=== PATIENT | female | born 1945 | race Caucasian/White ===

== ENCOUNTER → 2016-11-28 | Day surgery (SDC) | payer MEDICARE ==
--- NOTE | 2016-11-20 16:25 | MH ---
cc: TRACI GONZALEZ DATE OF ADMISSION: 11/28/2016 DATE OF 1945 ATTENDING PHYSICIAN Traci Gonzalez MD DIAGNOSIS Left breast cancer. 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 She was diagnosed with klo-cqtet-aldw lung cancer in September of 2012, treated with surgical resection of the right middle lobe followed by adjuvant chemotherapy with cisplatin. This was completed in January of 2013 and she is followed by Dr. Britt. She was in remission until April of 2016 when she developed brain metastasis, treated with stereotactic radiosurgery by Dr. Garcia and Dr. Palomares. A restaging MRI demonstrated reduction in the size of brain enhancement from 2.8 to 2.4 cm in July. A screening mammogram on September 19, 2016 demonstrated a density in the left breast and this was confirmed with diagnostic imaging and ultrasound on September 30 at [facility]. Ultrasound-guided core biopsy was performed on October 08 and this demonstrated invasive ductal carcinoma which was well-differentiated. She had a mass in the 4 o'clock location 6 cm from the nipple. She has opted for breast conservation and after discussion with Dr. Britt, he feels that she is in remission related to her lung cancer and brain involvement. She had a benign right breast image guided biopsy in 2008. PAST MEDICAL HISTORY Medical problems include: 1. Kjq-zvmqs-ylqd lung cancer with stage IV disease, currently in remission. 2. She has hypothyroidism. 3. Chronic obstructive pulmonary disease. PAST SURGERIES 1. Included craniotomy in 2015. 2. Thoracotomy and lung resection 2011. 3. Repair of right rotator cuff injury 2007. CURRENT MEDICATIONS 1. Keppra 500 mg b.i.d. 2. Naproxen 500 mg b.i.d. 3. Pravastatin 20 mg daily. 4. Xanax p.r.n. ALLERGIES SHE HAS AN ADVERSE DRUG REACTION TO OXYCODONE. REPRODUCTIVE HISTORY G0, P0. Menarche age 16, menopause age 44. She took hormone replacement for approximately 10 years. FAMILY HISTORY Significant for a sister who had DCIS at age 54. REVIEW OF SYSTEMS 12-point review of systems was significant for constipation and heartburn as well as mild expressive aphasia. PHYSICAL EXAMINATION VITAL SIGNS: She is 5 feet 3 inches and weighs 126 pounds with a BMI of 22.7. Blood pressure was 124/75, temperature 97, heart rate 79, respirations 18. HEENT: Pupils were equal, round, reactive to light with a normal ocular range of motion. She had a partial removable lower bridge. NECK: The neck was supple with no adenopathy or thyromegaly. CHEST: Exam revealed a right thoracotomy scar and it was clear to auscultation bilaterally. CARDIAC: Exam revealed a normal S1 and S2 with no murmurs, rubs or gallops. BREASTS: Exam revealed fibrocystic changes and asymmetry with a left breast being larger than the right. There were no palpable breast masses and there was no axillary adenopathy. ABDOMEN: The abdomen was soft and nontender with no masses. The remainder of her exam was unremarkable. IMPRESSION Ms. Tolliver has clinical stage I ductal carcinoma and has opted for breast conservation. She will undergo needle-localized lumpectomy as well as sentinel lymph node biopsy. She understands the risks and benefits of the procedure and has agreed to proceed. MD SHAMIR Romero/SAFIA /3:19 PM /3:51 PM
[~2016-11-28] MED LIST: ALBU.5I NEB; ALBU8I INH; ALPR0.25 PO; AMBI12.5 PO; ANAS1TAB PO; ASCO500C PO; ASPI81TA82 PO; BIOTCAP OR; BUPIVACAINE HCL PF 0.5% 10 ML VIAL ONE; CRAN1000 PO; DEXA4TAB PO; FISH1000 PO; ISOSULFAN BLUE 50 MG/5 ML VIAL SQ ONE; KEPP10002 PO; KETOROLAC TROMETHAMINE 30 MG/ML (IVP) VIAL IV PUSH ONE; LACTATED RINGER'S 1000 ML INJ 1,000 ML ONE; LEVE500 PO; LEVO.05 PO; LEVO50TA4 PO; MIDAZOLAM HCL 2 MG/2 ML VIAL ONE; MISC1TAB9 PO; MULT-65 PO; NS 100 ML (PAB BAG) 100 ML IV ONE; ONDANSETRON HCL 4 MG/2 ML VIAL IV PUSH ONE; PANT40IN3 PO; PRAV10 OR; PRAV20TA2 PO; PROPOFOL 200 MG/20 ML AMP IV ONE; SERT-132 PO; SODIUM CHLORIDE 0.9% INJ 10 ML ONE; STOO100T PO; TRAM50TA PO; ULTR50TA5 PO; VITA20002 PO; VITA200T5 PO; ZOLP10TA3 OR; ZOLP10TA3 PO; [UNRECOGNIZED DRUG - CODE] PO; [UNRECOGNIZED DRUG - CODE] SWISH-SPIT; ceFAZolin INJ 1,000 MG VIAL ONE
--- NOTE | 2016-11-28 14:28 | TN ---
cc: TRACI GONZALEZ DATE OF SURGERY: 11/28/2016 PREOPERATIVE DIAGNOSIS Clinical stage I invasive ductal carcinoma of the left breast. POSTOPERATIVE DIAGNOSIS Clinical stage I invasive ductal carcinoma of the left breast. PROCEDURE PERFORMED Left breast needle-localized lumpectomy and left axillary sentinel lymph node biopsy. SURGEON Traci Gonzalez ANESTHESIA General via LMA device. INDICATION The patient is a 71-year-old female treated for right lung cancer with lobectomy followed by chemotherapy and a subsequent brain metastasis in March 2016 requiring stereotactic surgery. She is currently doing well from a lung cancer standpoint, but mammogram in August demonstrated a new density which is a biopsy-proven clinical stage I breast cancer. She now presents for definitive surgical therapy. FINDINGS At the time of surgery specimen mammogram did demonstrate an intact wire and the biopsy clip and density were within the specimen but close to the edge. Four sentinel lymph nodes were removed. #1 had a count of 375 and was not blue. #2 had a count of 141 and was not blue, and #3 had a count of 135 and was not blue. #4 had a count of 67 and was not blue. Touch prep was not performed. PROCEDURE After informed consent was obtained and site verification was performed, the patient was brought to the radiology suite where she underwent needle localization of her left breast biopsy site as well as peritumoral radionuclide injection for a sentinel node procedure. She was then brought to the major operating room where she underwent general anesthesia via an LMA device, and the left breast and arm were prepped and draped in sterile fashion. 2 cc of half-strength Lymphazurin was injected in the subareolar left breast and a five-minute massage was performed. She was given a single dose of IV Ancef and sequential compression hose were placed. An incision was anesthetized at the inferior aspect of the left axillary hairline. Both sharp and electrocautery dissection were performed until the level I axilla was entered. Four mid level I sentinel lymph nodes were identified and circumferentially dissected free from surrounding structures using the Harmonic scalpel. Good hemostasis was noted and the four sentinel nodes were sent for permanent pathologic evaluation. Touch prep was not performed and the wound was closed with interrupted 3-0 Vicryl and 4-0 Monocryl subcuticular suture. Attention was then turned to the left breast where a wire was identified in the lower outer breast. A periareolar skin incision was anesthetized and incised sharply and both sharp and electrocautery dissection were performed until the wire entry point through the skin at 4 o'clock, 3 cm from the nipple was identified and secured with a hemostat. The wire was cut off at the skin with pin cutters and a 2-0 silk transfixion suture was placed at the wire entry point into the breast tissue. Both sharp and electrocautery dissection was performed circumferentially around the wire and the specimen was oriented with two sutures laterally, one long suture anteriorly, and one short suture superiorly. The specimen was sent for mammography as well as permanent pathologic evaluation but inspection of the specimen did demonstrate that the superior and anterior margins appeared close and each of these was sharply re-excised with a stitch on the new margin and they were sent as separate permanent specimens. Hemostasis was easily obtained with electrocautery and the wound was closed using interrupted 3-0 Vicryl subcutaneous sutures and a 4-0 Monocryl subcuticular suture. Steri-Strips were applied to both wounds. The patient tolerated the procedure well with an estimated blood loss of 50 cc. She was extubated in the operating room and brought to the recovery room in good condition. All sponge and needle counts were correct at the conclusion of the case. MD SHAMIR Romero/RUDY /2:03 PM /2:17 PM
== END | disposition home or self-care (01) ==
LOC: ESDC 08:52
PROVIDERS: ATTEND Surgery
DX: C50.912 Malignant neoplasm of unspecified site of left female breast (principal)
CPT/HCPCS: 00400; 01610; 19125; 38525; 38792; 88307; J0690; J1885; J2250; J2405; J3010; J7120; Q9968

== ENCOUNTER 2017-04-27 11:42 | Inpatient (IN) | payer MEDICARE ==
[~2017-04-27] VITALS: Ht 162.6 cm; Wt 61.0 kg
[~2017-04-27 11:42] MED LIST changes: -AMBI12.5 PO; -TRAM50TA PO; -ULTR50TA5 PO; -[UNRECOGNIZED DRUG - CODE] SWISH-SPIT
--- NOTE | 2017-04-28 17:21 | MH ---
cc: SUMAYA BRITT M.D., ROHIT K. M.D. KROCHAK, RONALD J. M.D. MARRESE, ROXY DATE OF ADMISSION: 04/29/2017 ADMISSION DIAGNOSIS Cerebral lesion. HISTORY OF PRESENT ILLNESS This is a 71-year-old female who is well-known to us. She has previously undergone a left frontal craniotomy with neoplasm resection on 06/02/2016. Final pathology revealed a To differentiated adenocarcinoma which was consistent with her previous primary carcinoma of the right lung from her lobectomy in 2011, the patient reports that her last MRI scan in November was stable and for the last 4 weeks she has been have an involuntary movements in the right upper extremity where she states she would elevate her right upper extremity and then she would notice this and then be able to regain control of the extremity. She was in [facility] on 04/16/2017 and develop tremors and flexion contracture involving the right upper extremity room with tremors from the right shoulder down to the right leg. She was taken to the emergency room and had a CT. 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 She states that she was reevaluated evaluated by neurology, neurosurgery and medical oncology. She was placed on Keppra, Decadron and the patient wants to follow up with her local provider is. She will previously scheduled a followup MRI scan of the brain on 04/15/2017 the diet the day prior to leaving for some for a subsequent evaluation with a radiation oncologist, Dr. Aguilar check on 04/21/2017. Dr. Fong contacted our office and requested reevaluation of the patient for recurrent cerebral mass. She has noticed some expressive aphasia which was which has gotten worse the last [id number] weeks. She also noticed that she feels more off balance with walking. She denies any residual weakness. She will still have involuntary movements of her right upper extremity and that she control when she notices that. PAST MEDICAL HISTORY 1. There is a significant for lung cancer and lumpectomy in 2011. 2. Left frontal craniotomy for a mass resection. ] 3. Chronic obstructive pulmonary disease. 4. Right rotator cuff surgery in 2007. 5. Pulmonary embolus in 2008. MEDICATIONS current medications and she is on 1. Ambien 10 mg p.o. q.h.s. p.r.n. insomnia. 1. Alprazolam 0.25 mg p.o. q.8 h. As needed anxiety. 2. thyroxine 50 mcg p.o. daily. 3. Sertraline 50 mg p.o. daily 4. Anastrazole 1 mg p.o. daily. 5. Pravastatin 20 mg p.o. daily. 6. Dexamethasone 4 mg p.o. q. 6 hours. 7. Keppra 1000 mg p.o. b.i.d. ALLERGIES TO MEDICATIONS OXYCODONE FAMILY HISTORY Her mother and father both . She has three sisters, 62, 64 and 69 that are alive. She has a brother who is alive 58. She has a brother who is at 74 year's old from an infection. SOCIAL HISTORY She is retired. She is . She does not have children. She quit smoking in 1974. She drinks two drinks of alcohol per day. REVIEW OF SYSTEMS: CONSTITUTIONAL: She denies any fever or chills. EAR, NOSE, AND THROAT: No pharyngitis, exudates or bloody drainage from nose. CARDIOVASCULAR SYSTEM: Denies any chest pain or palpitations RESPIRATORY: No cough or shortness of breath. GENITOURINARY: No dysuria or hematuria. MUSCULOSKELETAL: No neck or low back pain. SKIN: No rashes or pruritus. NEUROLOGIC: She has had some expressive aphasia. No difficulty with memory. GASTROINTESTINAL: No nausea, vomiting, or abdominal pain. PSYCHIATRIC: No anxiety or depression. ENDOCRINE: No polyuria, polydipsia. HEMATOLOGIC: No bruising. Positive for some bleeding tendencies. PHYSICAL EXAMINATION HEAD, EYES, EARS, NOSE, AND THROAT: She has a well-healed craniotomy incision. RESPIRATORY: Clear to auscultation bilaterally. HEART: Regular rate and rhythm, normal sinus. ABDOMEN: Soft, nontender. Positive bowel sounds. SKIN: Reveals no cyanosis or erythema. MUSCULOSKELETAL: She has 5/5 strength in the upper and lower extremities. She ambulates without any assistive device. NEUROLOGIC: She is awake, alert, oriented. Cranial nerves II-XII appear grossly intact. Speech reveals mild expressive aphasia. She understands speech, otherwise cranial nerves II-XII are grossly intact. IMPRESSION 71-year-old female with a history of metastatic poorly differentiated adenocarcinoma from primary lung cancer one-to-one resection of the left posterior frontal lobe mass in May 2016 with subsequent stereotactic radiosurgery. She had some right mild hemiparesis and expressive aphasia prior to surgery and intermittently thereafter although did improve. She again has noticed decline in her speech and right-sided intermittent spasms a motor seizures. MRI of the brain from November 2016 shows no recurrent mass with enhancement along the margins not atypical following surgery and radiation. Unfortunately more recent MRI scan from April 15, 2017 shows recurrent mass and which measures 2.6 x 2.1 cm with a regular enhancement surrounding edema. This is consistent with her recurrent neoplasm although a combination of radiation induced changes with neoplasm cannot be excluded. She was seen by neurosurgeon in [facility] a week ago and placed on Keppra, Decadron. Dr. Palomares from Radiation Oncology referred the patient to us for surgical intervention. PLAN We have discussed with the patient and her family concern regarding possibility of recurrent brain metastasis but cannot exclude radiation necrosis also. We have discussed treatment options with the patient which include MRI spectroscopy which would not be definitive. The only other why to know for sure is either a excisional biopsy or continue with observation and if the mass grows this will favor more neoplasm. Surgical resection caries increased risk of worsening aphasia and right hemiparesis and plegia. The patient was also given the option of seeing a referral center at [facility] or [facility] for their opinion. The patient has discussed with her oncologist, Dr. Britt and she is requesting that we proceed with surgical intervention. We have discussed the surgery was which would include a left craniotomy for neoplasm resection with motor cortex mapping in detail with the patient. We have discussed the risk benefit, alternative recovery time in great detail with the patient. We have discussed the risks along with surgery include but not limited to bleeding, infection, muscle weakness, voice hoarseness, difficulty swallowing, heart attack, stroke blood clots, worsening aphasia, difficulty with speech, worsening muscle weakness in particular on the right side, infection among others. The patient states that she understands the procedure and the risks involved and she is requesting that we proceed and she was therefore scheduled accordingly. Boom Garcia MD DICTATED BY: TONI Rothman/turner /4:33 PM /4:57 PM
[2017-04-29] VITALS (11 sets, daily range): BP systolic 98–147; BP diastolic 39–74; PULSE 56–76; RESP 10–24; TEMP 97.6–98.6; O2SAT 94–100
[2017-04-29] MEDS ORDERED: METOPROLOL TARTRATE 25 MG TAB PO PRN (06:45)
[2017-04-29] MEDS ORDERED: VANCOMYCIN HCL 1000 MG ON-CALL/NS 250 ML IV SCH ×2 (06:45)
[2017-04-29] MEDS ORDERED: SODIUM CHLORID 0.9% 500 ML IV PRN (06:45)
[2017-04-29] MEDS: SODIUM CHLOR 0.9% 1000 ML INJ 1,000 ML IV SCH (06:45)
[2017-04-29] MEDS ORDERED: INSULIN HUMAN REGULAR 1,000 UNITS/10 ML VIAL SQ PRN (06:45)
[2017-04-29] MEDS ORDERED: LACTATED RINGER'S 1000 ML IV PRN (06:45)
[2017-04-29] MEDS ORDERED: POVIDONE IODINE 5% (ANTISEPSIS KIT) 4 APPLICATIONS EACH NARE PRN (06:45)
[2017-04-29] MEDS ORDERED: CHLORHEXIDINE GLUCONATE 2 % 1 PACK (2 CLOTHS) TOPICAL PRN (06:45)
[2017-04-29] MEDS ORDERED: VANCOMYCIN HCL 1000 MG VIAL ONE (07:24)
[2017-04-29] MEDS ORDERED: GELFOAM SIZE 100 ONE (07:25)
[2017-04-29] MEDS ORDERED: BUPIVACAINE/EPINEPHRINE 0.5% PF 30 ML VIAL ONE (07:25)
[2017-04-29] MEDS ORDERED: THROMBIN (TOPICAL) 5,000 UNIT VIAL ONE (07:25)
[2017-04-29] MEDS ORDERED: MIDAZOLAM HCL 2 MG/2 ML VIAL ONE (08:07)
[2017-04-29] MEDS ORDERED: APREPITANT 40 MG CAP ONE (08:07)
[2017-04-29] MEDS ORDERED: FAMOTIDINE 20 MG/2 ML VIAL ONE (08:08)
[2017-04-29] MEDS ORDERED: levETIRAcetam 500 MG/NS 100 ML IV ONE ×2 (08:30)
[2017-04-29] MEDS ORDERED: GENTAMICIN SULFATE 80 MG/2 ML VIAL ONE (08:38)
[2017-04-29] MEDS: NS + KCL 20 MEQ INJ 1,000 ML IV SCH (10:52)
[2017-04-29] MEDS ORDERED: ACETAMINOPHEN 325 MG TAB PO PRN (11:00)
[2017-04-29] MEDS ORDERED: ALPRAZolam 0.25 MG TAB PO PRN (11:00)
[2017-04-29] MEDS ORDERED: niCARdipine INJ 25 MG in SODIUM CHLOR 0.9% 250 ML INJ 250 ML IV SCH (11:00)
[2017-04-29] MEDS ORDERED: ALUMINUM/MAGNESIUM/SIMETH 30 ML CUP PO PRN (11:00)
[2017-04-29] MEDS ORDERED: ACETAMINOPHEN/HYDROcodone 325 MG/10 MG TAB PO PRN ×2 (11:00)
[2017-04-29] MEDS ORDERED: POTASSIUM CHLOR 20 MEQ PREMIX 100 ML IV PRN (11:00)
[2017-04-29] MEDS ORDERED: MENTHOL LOZENGE BUCCAL PRN (11:00)
[2017-04-29] MEDS ORDERED: RESP: ALBUTEROL 2.5 MG/3 ML NEB (PRN) NEB (11:00)
[2017-04-29] MEDS ORDERED: LABETALOL HCL 100 MG/20 ML VIAL IV PRN (11:00)
[2017-04-29] MEDS ORDERED: cloNIDine HCL 0.1 MG TAB PO PRN (11:00)
[2017-04-29] MEDS ORDERED: ZOLPIDEM TARTRATE 10 MG TAB PO PRN (11:00)
[2017-04-29] MEDS ORDERED: SODIUM CHLORIDE 0.9% FLUSH 10 ML FLUSH IV FLUSH PRN (11:00)
[2017-04-29] MEDS ORDERED: MAGNESIUM SULFATE INJ 2 GM in SODIUM CHLORIDE 0.9% INJ 100 ML IV PRN (11:00)
[2017-04-29] MEDS ORDERED: MORPHINE SULFATE 4 MG/ML INJ IV PRN (11:00)
[2017-04-29] MEDS ORDERED: LORazepam 2 MG/ML VIAL IVP PRN (11:00)
[2017-04-29] MEDS ORDERED: CALCIUM GLUCONATE INJ 1 GM in SODIUM CHLORIDE 0.9% INJ 100 ML IV PRN (11:00)
[2017-04-29] MEDS ORDERED: METOCLOPRAMIDE HCL 10 MG/2 ML VIAL IVS PRN (11:00)
[2017-04-29] MEDS ORDERED: MAGNESIUM HYDROXIDE SUSP 30 ML CUP PO PRN (11:00)
[2017-04-29] MEDS ORDERED: ONDANSETRON HCL 4 MG/2 ML VIAL IV PRN (11:00)
--- NOTE | 2017-04-29 11:11 | PD.OP ---
cc: Dante Palomares MD; Ping Green Jr., MD; Judy Britt MD Operative Report Date of Surgery: Apr 29, 2017 Preoperative Diagnosis: Recurrent left posterior frontal lobe mass Postoperative Diagnosis: Metastasis Procedure: Left craniotomy for recurrent cerebral neoplasm resection; intraoperative motor cortex electrocorticography; Brain[facility] stereotactic navigation; microsurgical technique Anesthesia: Gen. endotracheal by Andree Gamino Surgeon: Boom Garcia M.D. General Operations Agent(s): Mely Ornelas Operation and Findings: Following initiation of a general endotracheal anesthesia the patient had invasive lines and To catheter in place along with the sequential compression device. A gram of vancomycin and 500 mg of Keppra was administered intravenously and she was positioned with the left side up on a shoulder roll and head secured with a Wallace headrest. [facility] navigation system was registered with external landmarks and good accuracy confirmed. The left side of the head along the previous craniotomy incision site was shaved and prepped with ChloraPrep and sterilely draped in the usual sterile fashion. An incision was then made after infiltrating the scalp was 0.5% Marcaine with epinephrine solution a skin incision made extending onto the galea at the previous incision site. Kartik clips were used at the scalp edges for hemostasis and the flap retracted inferiorly with hooks. The scalp was retracted back to preserving the dura overlying the brain. Previous cranial plates were removed and the bone flap also elevated. Further dissection was undertaken using microtechnique with microscope magnification. Previous the cruciate durotomy was also opened there was some adherence from scar tissue of the pial surface overlying this mass and the dura which was dissected out with cottonoids and bipolar cautery. BrainLab navigation system was then used to localize this mass approaching the cortical surface. Bipolar cortical stimulation undertaken posterior to this previous entry site to localize the motor cortex and stimulation around the previous corticectomy did not reveal any motor activity. Previous trajectory was used to enter this mass which had some fibrotic component and some rectus neoplastic component with no distinct margins given the previous surgery and radiation. Fresh frozen specimens were sent which are consistent with metastasis. Subsequently a gross total resection was undertaken until the margins of felt like more normal brain tissue. 4 Nurolon interrupted stitches were used for dural closure and a central dural tacking stitch also placed and the bone flap was then approximated using [place] mini plates and bur hole covers. The area was then copiously irrigated. The galea reapproximated using 2-0 and 30 Vicryls in an interrupted fashion and final scapular closure was with alex. A sterile pressure dressing was then applied the Wallace headrest removed .There were no intraoperative complications and all sponge and needle count was correct at the end of the procedure. Estimated blood loss about 25 cc. Patient was extubated and taken to the recovery room. Boom Garcia MD Apr 29, 2017 11:11
[2017-04-29] MEDS ORDERED: DO NOT ADM ANY ANTICOAGULANT DRUGS PRN (11:30)
[2017-04-29] MEDS ORDERED: *ENALAPRILAT 1.25 MG/ML VIAL PERIprocedural Use ONLY ONE (11:36)
[2017-04-29 11:50] LABS: HEMATOCRIT 37.8 % (35.0-46.0); MEAN CELL VOLUME 90.6 FL (80.0-100.0); MEAN CORPUSCULAR HEMOGLOBIN 31.2 PG (27.0-34.0); MEAN CORPUSCULAR HGB CONC 34.5 % (32.0-36.0); PLATELET COUNT 175 TH/MM3 (150-450); RED BLOOD COUNT 4.17 MIL/MM3 (4.00-5.30); RED CELL DISTRIBUTION WIDTH 12.8 % (11.6-17.2); REVIEW FLAG FINAL; WHITE BLOOD COUNT 8.9 TH/MM3 (4.0-11.0)
[2017-04-29 11:55] LABS: BICARBONATE 27.2 MEQ/L (21.0-32.0); MAGNESIUM 2.2 MG/DL (1.5-2.5)
[2017-04-29] MEDS ORDERED: LACTATED RINGER'S 1000 ML INJ 1,000 ML IV ONE (12:00)
[2017-04-29] MEDS ORDERED: ePHEDrine/NS 25 MG/5 ML SYR IV ONE (12:00)
[2017-04-29] MEDS ORDERED: ONDANSETRON HCL 4 MG/2 ML VIAL IV PUSH ONE (12:00)
[2017-04-29] MEDS ORDERED: PROPOFOL 200 MG/20 ML AMP IV ONE (12:00)
[2017-04-29] MEDS ORDERED: NORMOSOL R INJ 1,000 ML IV ONE (12:00)
[2017-04-29] MEDS ORDERED: DEXAMETHASONE 4 MG TAB PO SCH (12:00)
[2017-04-29] MEDS ORDERED: fentaNYL CITRATE 250 MCG/5 ML AMP ONE ×2 (13:52)
[2017-04-29] MEDS: DEXAMETHASONE 4 MG TAB PO SCH ×2 (15:00→20:04)
[2017-04-29] MEDS: levETIRAcetam 500 MG TAB PO SCH (20:04)
[2017-04-29] MEDS: DOCUSATE SODIUM 100 MG CAP PO SCH (20:05)
[2017-04-29] MEDS: SODIUM CHLORIDE 0.9% FLUSH 10 ML FLUSH IV FLUSH SCH (20:05)
[2017-04-30] VITALS (15 sets, daily range): BP systolic 112–141; BP diastolic 55–69; PULSE 59–79; RESP 12–21; TEMP 95.5–98.1; O2SAT 95–97
[2017-04-30] MEDS: NS + KCL 20 MEQ INJ 1,000 ML IV SCH (01:36)
[2017-04-30] MEDS: DEXAMETHASONE 4 MG TAB PO SCH ×4 (02:56→20:13)
[2017-04-30] MEDS: LEVOTHYROXINE SODIUM 50 MCG TAB PO SCH (05:48)
--- NOTE | 2017-04-30 06:12 | RADRPT ---
EXAM DATE/TIME: 04/30/2017 04:57 [facility] COMPARISON: CT BRAIN W/O CONTRAST, June 03, 2016, 4:14. INDICATIONS : Post op tumor resection. RADIATION DOSE: 55.75 CTDIvol (mGy) MEDICAL HISTORY : Metastatic, brain. Metastatic, lung. Chronic obstructive pulmonary disease. SURGICAL HISTORY : Craniotomy. Lobectomy. ENCOUNTER: Initial ACUITY: 1 day PAIN SCALE: 0/10 LOCATION: cranial TECHNIQUE: Multiple contiguous axial images were obtained of the head. Using automated exposure control and adj ustment of the mA and/or kV according to patient size, radiation dose was kept as low as reasonably a chievable to obtain optimal diagnostic quality images. FINDINGS: CEREBRUM: The patient had a left frontal craniotomy with a residual hypodense collection in the left frontal lo be measuring 2.0 x 1.5 cm across. There is some surrounding vasogenic edema . No new hemorrhage is id entified . There is some residual pneumocephalus No extra-axial fluid collections are seen. POSTERIOR FOSSA: The cerebellum and brainstem are intact. The 4th ventricle is midline. The cerebellopontine angle i s unremarkable. EXTRACRANIAL: The visualized portion of the orbits is intact. SKULL: Status post left frontal craniotomy . No evidence of skull fracture. CONCLUSION: Status post left frontal craniotomy with a residual hypodense collection in the left frontal lobe. No new hemorrhage, mass, or mass effect is noted. Residual pneumocephalus and some residual vasogenic edema is unchanged. Wilberto Vera MD on April 30, 2017 at 6:08 Board Certified Radiologist. This report was verified electronically.
[2017-04-30] MEDS: SODIUM CHLOR 0.9% 1000 ML INJ 1,000 ML IV SCH (06:45)
--- NOTE | 2017-04-30 08:47 | HHI.NSPN ---
(Asa Priest) History Chief Complaint: Mild incisional pain. (Asa Priest) Interval History 04/30/17: s/p left craniotomy for recurrent cerebral neoplasm resection; intraoperative motor cortex electrocorticography; BrainLab stereotactic navigation; microsurgical technique on 04/29/17. Pt doing well. Mild incisional headache. No nausea or vomiting. Mild expressive aphasia. No chest pain or sob. (Asa Priest) Review of Systems General: Negative for: fever, chills, insomnia Respiratory: Negative for: shortness of breath, cough, sputum Cardiovascular: Negative for: chest pain Gastrointestinal: Negative for: nausea, vomitting, diarrhea, constipation ( Asa Priets) Exam Results Vital Signs Date Time Temp Pulse Resp B/P Pulse Ox O2 Delivery O2 Flow Rate FiO2 04/30/17 08:19 95 21 04/30/17 08:00 69 04/30/17 07:00 Room Air 04/30/17 06:58 97.7 14 141/65 04/29/17 13:15 2 Intake and Output 04/29/17 04/29/17 04/30/17 08:00 16:00 00:00 Intake Total 3550 ml 4120 ml Output Total 1350 ml 3600 ml Balance 2200 ml 520 ml (Asa Priest) Physical Examination Head: Left craniotomy incision clean and dry without any signs of infection. Resp: CTA bilaterally Heart: NSR no murmurs Abd: soft positive bs Skin: Incision clean and dry. No signs of infection. Muscle: Moves all 4 extremities well. Neuro: Awake and alert. Mild expressive aphasia. Follows commands well. Pupils 3mm bilaterally reactive bilaterally. (Asa Priest) Lab, Micro, Other Results Last Impressions Head CT 04/30/17 0600 Signed Impressions: Service Date/Time: April 04:57 - CONCLUSION: Status post left frontal craniotomy with a residual hypodense collection in the left frontal lobe. No new hemorrhage, mass, or mass effect is noted. Residual pneumocephalus and some residual vasogenic edema is unchanged. Wilberto Vera MD Laboratory Tests Test 04/29/17 11:30 White Blood Count 8.9 TH/MM3 Red Blood Count 4.17 MIL/MM3 Hemoglobin 13.0 GM/DL Hematocrit 37.8 % Mean Corpuscular Volume 90.6 FL Mean Corpuscular Hemoglobin 31.2 PG Mean Corpuscular Hemoglobin 34.5 % Concent Red Cell Distribution Width 12.8 % Platelet Count 175 TH/MM3 Mean Platelet Volume 7.6 FL Sodium Level 138 MEQ/L Potassium Level 4.0 MEQ/L Chloride Level 101 MEQ/L Carbon Dioxide Level 27.2 MEQ/L Anion Gap 10 MEQ/L Blood Urea Nitrogen 14 MG/DL Creatinine 0.58 MG/DL Estimat Glomerular Filtration 103 ML/MIN Rate Random Glucose 163 MG/DL Calcium Level 8.1 MG/DL Magnesium Level 2.2 MG/DL 04/29/17 04/29/17 04/30/17 15:00 23:00 07:00 Intake Total 3550 ml 4120 ml 3020 ml Output Total 1350 ml 3600 ml 2100 ml Balance 2200 ml 520 ml 920 ml Intake Oral 1240 ml 1020 ml IV Total 2880 ml 2000 ml Other 3550 ml Output Urine Total 1300 ml 3600 ml 2100 ml Estimated Blood Loss 50 ml (Asa Priest) Medical Decision Making Impression and Plan A: 71 y/o FM s/p Left craniotomy for recurrent cerebral neoplasm resection; intraoperative motor cortex electrocorticography; BrainLab stereotactic navigation; microsurgical technique. POD #1 P: D/C a line D/C To D/C IVF. (Asa Priest) Attending Statement The exam, history, and the medical decision-making described in the above note were completed with the assistance of the mid-level provider. I reviewed and agree with the findings presented. I attest that I had a sbzo-sm-fkia encounter with the patient on the same day, and personally performed and documented my assessment and findings in the medical record. She is doing where well postoperatively with no new deficits. CT of the head is stable with resected left frontal cavity. Discontinue To and arterial lines and IV fluids and transfer to floor. She related some involuntary twitching in the right ulnar fingers for a few minutes last evening but none today. We'll continue with Keppra 1000 twice a day and check an EEG. Updated and sister at bedside. (Boom Garcia MD) Asa Priest Apr 30, 2017 08:47 Boom Garcia MD Apr 30, 2017 16:16
[2017-04-30] MEDS: SODIUM CHLORIDE 0.9% FLUSH 10 ML FLUSH IV FLUSH SCH ×2 (09:00→20:13)
[2017-04-30] MEDS: SERTRALINE HCL 50 MG TAB PO SCH (09:14)
[2017-04-30] MEDS: DOCUSATE SODIUM 100 MG CAP PO SCH ×2 (09:14→20:13)
[2017-04-30] MEDS: PANTOPRAZOLE SOD 40 MG DELAYED RELEASE TAB PO SCH (09:14)
[2017-04-30] MEDS: ANASTROZOLE 1 MG TAB PO SCH (09:14)
[2017-04-30] MEDS: levETIRAcetam 500 MG TAB PO SCH ×2 (09:14→20:13)
[2017-04-30] MEDS: PRAVASTATIN SOD 20 MG TAB PO SCH (09:14)
[2017-04-30] MEDS: traMADol HCL 50 MG TAB PO PRN (18:11)
--- NOTE | 2017-04-30 20:28 | MG ---
cc: RAMY ALBERT Lab No: [id number] Date: 04/30/17 Age: Sex: F Race: TECHNIQUE 17 channel EEG. DESCRIPTION The background rhythm initially is a symmetrical alpha rhythm, frequency is 8-10 Hz, amplitude is about 10-20 microvolts. There is occasional muscle artifact present. No lateralizing features are identified. During drowsiness, there is some slowing in the theta range at roughly 6 Hz. There are no epileptiform features. INTERPRETATION Normal EEG. MD ROLO Powell/ 7:47 PM /8:26 PM
[2017-05-01] VITALS: BP 144/65; PULSE 53; RESP 18; TEMP 97.4; O2SAT 97
[2017-05-01 04:00] VITALS: BP 145/65; PULSE 61; RESP 20; TEMP 96.5; O2SAT 99
[2017-05-01] MEDS: DEXAMETHASONE 4 MG TAB PO SCH ×2 (04:28→08:11)
[2017-05-01] MEDS: LEVOTHYROXINE SODIUM 50 MCG TAB PO SCH (04:28)
[2017-05-01] MEDS: traMADol HCL 50 MG TAB PO PRN (05:54)
[2017-05-01] MEDS: levETIRAcetam 500 MG TAB PO SCH (08:10)
[2017-05-01] MEDS: DOCUSATE SODIUM 100 MG CAP PO SCH (08:11)
[2017-05-01] MEDS: PANTOPRAZOLE SOD 40 MG DELAYED RELEASE TAB PO SCH (08:11)
[2017-05-01] MEDS: ANASTROZOLE 1 MG TAB PO SCH (08:11)
[2017-05-01] MEDS: SERTRALINE HCL 50 MG TAB PO SCH (08:12)
[2017-05-01] MEDS: PRAVASTATIN SOD 20 MG TAB PO SCH (08:12)
[2017-05-01] MEDS: SODIUM CHLORIDE 0.9% FLUSH 10 ML FLUSH IV FLUSH SCH (08:17)
[2017-05-01 09:07] VITALS: BP 159/75; PULSE 59; RESP 18; TEMP 96.2; O2SAT 97
--- NOTE | 2017-05-01 09:31 | HHI.NSPN ---
History Chief Complaint: Mild incisional pain. Interval History 04/30/17: s/p left craniotomy for recurrent cerebral neoplasm resection; intraoperative motor cortex electrocorticography; Brain[facility] stereotactic navigation; microsurgical technique on 04/29/17. Pt doing well. Mild incisional headache. No nausea or vomiting. Mild expressive aphasia. No chest pain or sob. 05/01/17: Pt awake and alert. Denies headache today. Expressive aphasia stable pt feels some improvement. No tremors today. Follows commands well. Pt wants to go home today. Review of Systems General: Negative for: fever, chills, insomnia Respiratory: Negative for: shortness of breath, cough, sputum Cardiovascular: Negative for: chest pain Gastrointestinal: Negative for: nausea, vomitting, diarrhea, constipation Exam Results Vital Signs Date Time Temp Pulse Resp B/P Pulse Ox O2 Delivery O2 Flow Rate FiO2 05/01/17 09:07 96.2 59 18 159/75 97 04/30/17 08:19 21 04/30/17 07:00 Room Air 04/29/17 13:15 2 Intake and Output 04/30/17 04/30/17 05/01/17 08:00 16:00 00:00 Intake Total 3020 ml 500 ml Output Total 2100 ml 1200 ml Balance 920 ml -700 ml Physical Examination Head: Left craniotomy incision clean and dry without any signs of infection. Resp: CTA bilaterally Heart: NSR no murmurs Abd: soft positive bs Skin: Incision clean and dry. No signs of infection. Muscle: Moves all 4 extremities well. Neuro: Awake and alert. Mild expressive aphasia. Follows commands well. Pupils 3mm bilaterally reactive bilaterally. Lab, Micro, Other Results Last Impressions Head CT 04/30/17 0600 Signed Impressions: Service Date/Time: April 04:57 - CONCLUSION: Status post left frontal craniotomy with a residual hypodense collection in the left frontal lobe. No new hemorrhage, mass, or mass effect is noted. Residual pneumocephalus and some residual vasogenic edema is unchanged. Wilberto Vera MD 04/30/17 04/30/17 05/01/17 15:00 23:00 07:00 Intake Total 500 ml Output Total 1200 ml Balance -700 ml Intake Oral 500 ml Output Urine Total 1200 ml # Voids 4 # Bowel Movements 1 Medical Decision Making Impression and Plan A: 71 y/o FM s/p Left craniotomy for recurrent cerebral neoplasm resection; intraoperative motor cortex electrocorticography; BrainLab stereotactic navigation; microsurgical technique. POD #1 P: D/C pt home Keep incision clean and dry. Discussed restrictions. Family at bedside feels comfortable with pt going home. Asa Priest May 01, 2017 09:31
[2017-05-01] MEDS ORDERED: ULTR50TA5 PO (09:34)
[2017-05-01] MEDS ORDERED: DEXA4TAB PO (09:36)
[2017-05-01] MEDS ORDERED: KEPP10002 PO (09:36)
[2017-05-01] MEDS ORDERED: INFLUENZA VIRUS VACCINE (QUADRIVALENT) 0.5 ML SYR IM ONE (10:00)
[2017-05-01] MEDS ORDERED: PNEUMOCOCCAL POLYVALENT INJ 25 MCG/0.5 ML SYR IM ONE (10:00)
[2017-05-01] MEDS ORDERED: TRAM50TA PO (10:04)
[2017-05-05] MEDS ORDERED: [UNRECOGNIZED DRUG - CODE] SWISH-SPIT (12:39)
[2017-05-11] MEDS ORDERED: AMBI12.5 PO (16:27)
[2017-05-14] MEDS ORDERED: KEPP10002 PO (12:10)
== END 2017-05-01 10:51 | disposition home or self-care (01) | DRG 26 ==
LOC: HSDI 04-29 06:06 → N03B 04-29 13:25 → N05A 04-30 17:11
PROVIDERS: ADMIT Neurological Surgery; ATTEND Neurological Surgery
PROC: 00B20ZZ Excision of Dura Mater, Open Approach (ICD-10-PCS; principal; 2017-04-29 08:22)
DX: C79.31 Secondary malignant neoplasm of brain (principal); G81.90 Hemiplegia, unspecified affecting unspecified side; R56.9 Unspecified convulsions; J44.9 Chronic obstructive pulmonary disease, unspecified; R47.01 Aphasia; Z85.118 Personal history of other malignant neoplasm of bronchus and lung; Y84.2 Radiological procedure and radiotherapy as the cause of abnormal reaction of the patient, or of later complication, without mention of misadventure at the time of the procedure; Z86.711 Personal history of pulmonary embolism; Z87.891 Personal history of nicotine dependence; Z92.3 Personal history of irradiation
CPT/HCPCS: 36415; 70450; 71020; 80048; 80053; 81001; 83735; 85025; 85027; 85610; 85730; 86850; 86900; 86901; 86920; 87641; 88307; 88331; 93005; 94150; 95819; C1713; J0610; J0690; J1580; J1953; J2250; J2405; J3010; J3370; J3480; J7050; J7120; J8501; J8540

== ENCOUNTER → 2017-04-27 | Outpatient (CLI) | payer MEDICARE ==
[~2017-04-27] MED LIST changes: -ALBU.5I NEB; -ALBU8I INH; -ASCO500C PO; -ASPI81TA82 PO; -BIOTCAP OR; -BUPIVACAINE HCL PF 0.5% 10 ML VIAL ONE; -CRAN1000 PO; -FISH1000 PO; -ISOSULFAN BLUE 50 MG/5 ML VIAL SQ ONE; -KETOROLAC TROMETHAMINE 30 MG/ML (IVP) VIAL IV PUSH ONE; -LACTATED RINGER'S 1000 ML INJ 1,000 ML ONE; -LEVE500 PO; -LEVO.05 PO; -MIDAZOLAM HCL 2 MG/2 ML VIAL ONE; -MISC1TAB9 PO; -MULT-65 PO; -NS 100 ML (PAB BAG) 100 ML IV ONE; -ONDANSETRON HCL 4 MG/2 ML VIAL IV PUSH ONE; -PANT40IN3 PO; -PRAV10 OR; -PROPOFOL 200 MG/20 ML AMP IV ONE; -SODIUM CHLORIDE 0.9% INJ 10 ML ONE; -STOO100T PO; -VITA20002 PO; -VITA200T5 PO; -ZOLP10TA3 OR; -[UNRECOGNIZED DRUG - CODE] PO; -ceFAZolin INJ 1,000 MG VIAL ONE
[2017-04-27 13:07] LABS: AUTOMATED NEUTROPHIL # 12.1 TH/MM3 (1.8-7.7); BASOPHIL % 0.1 % (0.0-2.0); HEMATOCRIT 41.5 % (35.0-46.0); HEMO FLAGS DIFF FINAL; LYMPH % 3.6 % (9.0-44.0); LYMPHOCYTE # 0.5 TH/MM3 (1.0-4.8); MEAN CELL VOLUME 90.6 FL (80.0-100.0); MEAN CORPUSCULAR HEMOGLOBIN 30.3 PG (27.0-34.0); MEAN CORPUSCULAR HGB CONC 33.4 % (32.0-36.0); NEUT % 91.3 % (16.0-70.0); PLATELET COUNT 226 TH/MM3 (150-450); RED BLOOD COUNT 4.58 MIL/MM3 (4.00-5.30); RED CELL DISTRIBUTION WIDTH 12.6 % (11.6-17.2); WHITE BLOOD COUNT 13.2 TH/MM3 (4.0-11.0)
--- NOTE | 2017-04-27 13:12 | RADRPT ---
EXAM DATE/TIME: 04/27/2017 12:37 [facility] COMPARISON: No previous studies available for comparison. INDICATIONS : Evaluate for pneumonia, pneumothorax or communicable disease. Pre op craniotomy. MEDICAL HISTORY : Carcinoma, lung. Carcinoma, breast. Carcinoma, brain SURGICAL HISTORY : Lobectomy. Infusaport ENCOUNTER: Initial ACUITY: 1 day PAIN SCORE: 0/10 LOCATION: Bilateral chest FINDINGS: Tvwbii-G-Veje is in good position. Lungs are clear. Heart and pulmonary vascularity is normal. Por tion of bony skeleton visualized unremarkable. CONCLUSION: Eyvzsz-U-Iiar in good position, otherwise negative. Sherman Gomes MD FACR on April 27, 2017 at 12:49 Board Certified Radiologist. This report was verified electronically.
[2017-04-27 13:15] LABS: APTT (PATIENT) 21.2 SEC (24.3-30.1); PROTHROMBIN TIME - PATIENT 10.5 SEC (9.8-11.6)
[2017-04-27 13:37] LABS: ANION GAP 9 MEQ/L (5-15); AST (GOT) 16 U/L (15-37); BICARBONATE 27.2 MEQ/L (21.0-32.0); BLOOD UREA NITROGEN 24 MG/DL (7-18); CHLORIDE 100 MEQ/L (98-107); GLOMERULAR FILTRATION RATE 70 ML/MIN (>89); GLUCOSE,FASTING 177 MG/DL (74-99); POTASSIUM 4.2 MEQ/L (3.5-5.1); SODIUM (NA) 136 MEQ/L (136-145)
[2017-04-27 13:43] LABS: ALKALINE PHOSPHATASE 102 U/L (45-117); ALT (GPT) 51 U/L (10-53); TOTAL BILIRUBIN ADULT 0.3 MG/DL (0.2-1.0)
[2017-04-27 14:03] LABS: BLOOD, URINE NEG (NEG); COMMENT (UR) CULT NOT INDICATED; CULTURE IF INDICATED CULT NOT INDICATED; GLUCOSE,URINE TRACE mg/dL (NEG); KETONE, URINE NEG (NEG); MUCUS URINE FEW /lpf (OCC); NITRITE,URINE NEG (NEG); URINE COLOR LIGHT-YELLOW (YELLW/STRAW)
--- NOTE | 2017-04-28 22:09 | EKG ---
Date Performed: 04/27/2017 Time Performed: 12:02:35 PTAGE: 71 years EKG: Sinus rhythm Since previous tracing, no significant change noted NORMAL ECG PREVIOUS TRACING : 03/03/2008 13.53.30 DOCTOR: Abner Bolden Interpretating Date/Time 04/28/2017 22:07:11
== END ==
LOC: CPRE 11:38
PROVIDERS: ATTEND Neurological Surgery
DX: Z01.812 Encounter for preprocedural laboratory examination (principal); Z01.810 Encounter for preprocedural cardiovascular examination; Z01.811 Encounter for preprocedural respiratory examination; C79.31 Secondary malignant neoplasm of brain
CPT/HCPCS: 36415; 71020; 80053; 81001; 85025; 85610; 85730; 86850; 86900; 86901; 86920; 93005

== ENCOUNTER 2017-07-10 16:09 | Inpatient (IN) | payer MEDICARE ==
[~2017-07-10] VITALS: Ht 162.6 cm; Wt 62.5 kg
[~2017-07-10 16:09] MED LIST changes: +AMBI12.5 PO; +TRAM50TA PO; +ULTR50TA5 PO; +[UNRECOGNIZED DRUG - CODE] SWISH-SPIT
[2017-07-10 16:13] VITALS: BP 140/73; PULSE 98; RESP 16; TEMP 97.8; O2SAT 95
--- NOTE | 2017-07-10 16:55 | PD ---
HPI Chief Complaint: Respiratory Symptoms Time Seen by Provider: 16:36 Travel History International Travel<30 days: No Contact w/Intl Traveler<30days: No Traveled to known affect area: No History of Present Illness HPI Patient sent by Dr. Amrita Light for evaluation of pulmonary embolism. 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 Patient had been complaining of SOB for the past week. Went to Dr. Light today who ordered a PE study and when positive at [facility] sent her to the ER for admission. Patient states she has SOB only when exerting herself. Feels well otherwise. No headaches, no weakness, no pain. PFSH Past Medical History Arthritis: No Asthma: No Autoimmune Disease: No Anxiety: No Depression: No Heart Rhythm Problems: No Cancer: No Cardiovascular Problems: Yes High Cholesterol: No Chest Pain: No Congestive Heart Failure: No COPD: No Cerebrovascular Accident: No Diabetes: No Endocrine: No Genitourinary: No Hepatitis: No Hiatal Hernia: No Immune Disorder: No Musculoskeletal: No Neurologic: Yes Psychiatric: No Reproductive: No Respiratory: Yes (LUNG CA, COPD) Migraines: No Seizures: No Sleep Apnea: No Thyroid Disease: No Past Surgical History Abdominal Surgery: No AICD: No Arteriovenous Shunt: No Body Medical Devices: IMPLANTED PORT RIGHT CHEST, PLATE L SIDE OF HEAD Cardiac Surgery: No Ear Surgery: No Endocrine Surgery: No Eye Surgery: No Genitourinary Surgery: No Gynecologic Surgery: No Insulin Pump: No Joint Replacement: Yes (Left Chest side port. Not working) Oral Surgery: No Pacemaker: No Thoracic Surgery: No Social History Alcohol Use: Yes (1 GLASS OF WINE PER DAY) Tobacco Use: No Substance Use: No Allergies-Medications (Allergen,Severity, Reaction): Coded Allergies: oxycodone (Unverified Adverse Reaction, Severe, Nausea/Vomiting, 07/10/17) Reported Meds & Prescriptions Reported Meds & Active Scripts Active Keppra (Levetiracetam) 1,000 Mg Tab 1,000 Mg PO BID Dexamethasone 4 Mg Tab 4 Mg PO Q6HR Reported Zolpidem (Zolpidem Tartrate) 10 Mg Tab 10 Mg PO HS PRN Alprazolam 0.25 Mg Tab 0.25 Mg PO Q8H PRN Levothyroxine (Levothyroxine Sodium) 50 Mcg Tab 50 Mcg PO DAILY Sertraline (Sertraline HCl) 50 Mg Tab 50 Mg PO DAILY Anastrozole 1 Mg Tab 1 Mg PO DAILY Pravastatin 20 Mg Tab 20 Mg PO DAILY Review of Systems Except as stated in HPI: all other systems reviewed are Neg Physical Exam Narrative GENERAL: WD/WN in nad. SKIN: Warm and dry. HEAD: Atraumatic. Normocephalic. EYES: Pupils equal and round. No scleral icterus. No injection or drainage. ENT: No nasal bleeding or discharge. Mucous membranes pink and moist. NECK: Trachea midline. No JVD. CARDIOVASCULAR: Regular rate and rhythm. No MGR. RESPIRATORY: No accessory muscle use. Clear to auscultation. Breath sounds equal bilaterally. GASTROINTESTINAL: Abdomen soft, non-tender, nondistended. Hepatic and splenic margins not palpable. MUSCULOSKELETAL: Extremities without clubbing, cyanosis, or edema. No obvious deformities. NEUROLOGICAL: Awake and alert. No obvious cranial nerve deficits. Motor grossly within normal limits. Five out of 5 muscle strength in the arms and legs. Normal speech. PSYCHIATRIC: Appropriate mood and affect; insight and judgment normal. Data Data Last Documented VS Vital Signs Date Time Temp Pulse Resp B/P Pulse Ox O2 Delivery O2 Flow Rate FiO2 07/10/17 18:58 18 95 Room Air 07/10/17 18:30 91 157/78 07/10/17 16:13 97.8 Orders Electrocardiogram (07/10/17 16:51) Basic Metabolic Panel (Bmp) (07/10/17 16:51) Ckmb (Isoenzyme) Profile (07/10/17 16:51) Complete Blood Count With Diff (07/10/17 16:51) Magnesium (Mg) (07/10/17 16:51) Prothrombin Time / Inr (Pt) (07/10/17 16:51) Act Partial Throm Time (Ptt) (07/10/17 16:51) Troponin I (07/10/17 16:51) Ecg Monitoring (07/10/17 16:51) Iv Access Insert/Monitor (07/10/17 16:51) Oximetry (07/10/17 16:51) Oxygen Administration (07/10/17 16:51) Sodium Chloride 0.9% Flush (Ns Flush) (07/10/17 17:00) Mri Brain W&W/O Contrast (07/10/17 ) Gadodiamide Pf Inj (Omniscan Pf Inj) (07/10/17 17:53) Heparin Infusion MONA.Q1H (07/10/17 18:28) Heparin Inj (Heparin Inj) (07/10/17 18:30) Heparin Inj (Heparin Inj) (07/11/17 00:30) Heparin Inj (Heparin Inj) (07/11/17 00:30) Heparin-D5w Inj (Heparin-D5w Inj) (07/10/17 18:30) Cbc No Diff, Includes Plts (07/13/17 06:00) Act Partial Throm Time (Ptt) (07/11/17 01:28) Occult Blood (Hemoccult) Stool (07/10/17 18:28) Admit To Inpatient (07/10/17 ) Code Status (07/10/17 18:59) Vital Signs (Adult) Q4H (07/10/17 18:59) Activity Oob With Assistance (07/10/17 18:59) Line Runner / Telemetry .CONTINUOUS (07/10/17 18:59) Diet Heart Healthy (07/10/17 Dinner) Sodium Chloride 0.9% Flush (Ns Flush) (07/10/17 19:00) Sodium Chloride 0.9% Flush (Ns Flush) (07/10/17 21:00) Acetaminophen (Tylenol) (07/10/17 19:00) Ondansetron Inj (Zofran Inj) (07/10/17 19:00) Temazepam (Restoril) (07/10/17 19:00) Basic Metabolic Panel (Bmp) (07/11/17 06:00) Complete Blood Count With Diff (07/11/17 06:00) Pt Request For Service (07/10/17 18:59) Naloxone Inj (Narcan Inj) (07/10/17 19:00) Magnesium Hydroxide Liq (Milk Of Magnesi (07/10/17 19:00) Inpatient Certification (07/10/17 ) Alprazolam (Xanax) (07/10/17 19:15) Anastrozole (Arimidex) (07/11/17 09:00) Dexamethasone (Decadron) (07/11/17 00:00) Levetiracetam (Keppra) (07/10/17 21:00) Levothyroxine (Synthroid) (07/11/17 06:00) Pravastatin (Pravachol) (07/11/17 09:00) Sertraline (Zoloft) (07/11/17 09:00) Admit Order (Ed Use Only) (07/10/17 ) Labs Laboratory Tests Test 07/10/17 17:15 White Blood Count 8.8 TH/MM3 Red Blood Count 4.09 MIL/MM3 Hemoglobin 12.9 GM/DL Hematocrit 38.1 % Mean Corpuscular Volume 93.0 FL Mean Corpuscular Hemoglobin 31.6 PG Mean Corpuscular Hemoglobin 33.9 % Concent Red Cell Distribution Width 16.7 % Platelet Count 164 TH/MM3 Mean Platelet Volume 6.9 FL Neutrophils (%) (Auto) 84.7 % Lymphocytes (%) (Auto) 8.3 % Monocytes (%) (Auto) 6.6 % Eosinophils (%) (Auto) 0.1 % Basophils (%) (Auto) 0.3 % Neutrophils # (Auto) 7.5 TH/MM3 Lymphocytes # (Auto) 0.7 TH/MM3 Monocytes # (Auto) 0.6 TH/MM3 Eosinophils # (Auto) 0.0 TH/MM3 Basophils # (Auto) 0.0 TH/MM3 CBC Comment AUTO DIFF Differential Total Cells 100 Counted Neutrophils % (Manual) 86 % Band Neutrophils % 1 % Lymphocytes % 8 % Neutrophils # (Manual) 8.1 TH/MM3 Metamyelocytes 4 % Myelocytes 1 % Differential Comment FINAL DIFF MANUAL Prothrombin Time 10.7 SEC Prothromb Time International 1.0 RATIO Ratio Activated Partial 20.9 SEC Thromboplast Time Sodium Level 140 MEQ/L Potassium Level 4.3 MEQ/L Chloride Level 103 MEQ/L Carbon Dioxide Level 27.8 MEQ/L Anion Gap 9 MEQ/L Blood Urea Nitrogen 13 MG/DL Creatinine 0.61 MG/DL Estimat Glomerular Filtration 97 ML/MIN Rate Random Glucose 102 MG/DL Calcium Level 8.7 MG/DL Magnesium Level 2.3 MG/DL Total Creatine Kinase 50 U/L Troponin I LESS THAN 0.02 NG/ML MDM Medical Decision Making Medical Screen Exam Complete: Yes Emergency Medical Condition: Yes Differential Diagnosis PE, CHF unlikely, Coagulopathy. Narrative Course Patient roomed in ED. D/W Dr. Light who recommends imaging of head prior to heparinization. Dr. Wright arrives from oncology service and recommends MRI head then heparin bridge to coumadin. Discussed with Lloyd Garcia of neurosurgery who states that anticoagulation is appropriate after confirming no intracranial hemorrhage. Lab work amenable to heparinization and so ordered. D/W Dr. Sharonda Peralta for admission. Diagnosis Primary Impression: Pulmonary embolism Additional Impressions: Neoplasm of brain causing mass effect on adjacent structures Lung cancer Admitting Information Admitting Physician Requests: Admit Condition: Stable Carlo Koenig MD Jul 10, 2017 16:55
[2017-07-10] MEDS ORDERED: SODIUM CHLORIDE 0.9% FLUSH 10 ML FLUSH IVF PRN (17:00)
[2017-07-10 17:38] LABS: AUTOMATED NEUTROPHIL # 7.5 TH/MM3 (1.8-7.7); BASOPHIL % 0.3 % (0.0-2.0); EOSINOPHIL % 0.1 % (0.0-4.0); HEMATOCRIT 38.1 % (35.0-46.0); LYMPH % 8.3 % (9.0-44.0); LYMPHOCYTE # 0.7 TH/MM3 (1.0-4.8); MEAN CORPUSCULAR HEMOGLOBIN 31.6 PG (27.0-34.0); MEAN CORPUSCULAR HGB CONC 33.9 % (32.0-36.0); MONO % 6.6 % (0.0-8.0); NEUT % 84.7 % (16.0-70.0); PLATELET COUNT 164 TH/MM3 (150-450); RED BLOOD COUNT 4.09 MIL/MM3 (4.00-5.30); RED CELL DISTRIBUTION WIDTH 16.7 % (11.6-17.2); WHITE BLOOD COUNT 8.8 TH/MM3 (4.0-11.0)
[2017-07-10 17:43] LABS: HEMO FLAGS AUTO DIFF
[2017-07-10 17:52] LABS: APTT (PATIENT) 20.9 SEC (24.3-30.1); PROTHROMBIN TIME - PATIENT 10.7 SEC (9.8-11.6)
[2017-07-10] MEDS ORDERED: GADODIAMIDE PF 287 MG/ML 10 ML VIAL (for RAD MRI) IV ONE (17:53)
[2017-07-10 17:57] LABS: ANION GAP 9 MEQ/L (5-15); BICARBONATE 27.8 MEQ/L (21.0-32.0); BLOOD UREA NITROGEN 13 MG/DL (7-18); CHLORIDE 103 MEQ/L (98-107); GLOMERULAR FILTRATION RATE 97 ML/MIN (>89); MAGNESIUM 2.3 MG/DL (1.5-2.5); POTASSIUM 4.3 MEQ/L (3.5-5.1); SODIUM (NA) 140 MEQ/L (136-145)
[2017-07-10 18:03] LABS: CREATINE KINASE 50 U/L (26-192)
--- NOTE | 2017-07-10 18:19 | RADRPT ---
EXAM DATE/TIME: 07/10/2017 17:37 [facility] COMPARISON: No previous studies available for comparison. INDICATIONS : Hemorrhage. CONTRAST: 10 cc Omniscan (gadodiamide) IV MEDICAL HISTORY : Carcinoma, lung. SURGICAL HISTORY : Craniotomy. Lobectomy. ENCOUNTER: Initial ACUITY: 1 day PAIN SCORE: 0/10 LOCATION: cranial TECHNIQUE: Multiplanar, multisequence MRI of the brain was performed both prior to and following the administrat ion of paramagnetic contrast. FINDINGS: Craniotomy and tumor resection is seen near the vertex of the left posterior frontal lobe. There is a cystic space in the surgical bed measuring approximately 15 x 21 x 25 mm in size. Mild rim enhanceme nt is noted with a wall thickness measuring up to 3 mm, for example series 15 image 100. No masslike or nodular enhancement seen. There is mild, benign appearing enhancement of the overlying meninges. T he fluid collection is without restricted diffusion which mitigates against the likelihood of abscess . No intracranial hemorrhage or hematoma. Mild chronic white matter changes are noted. No evidence of a n acute ischemic event. CONCLUSION: 1. Surgical changes of the left frontal lobe vertex as above with a generally benign appearance. Mild ly thick and enhancing wall of the surgical bed but no masslike or nodular enhancement. No bleed or e vidence of an acute ischemic event. 2. Mild chronic white matter changes. Reji Quintana MD on July 10, 2017 at 18:13 Board Certified Radiologist. This report was verified electronically.
[2017-07-10 18:30] VITALS: BP 157/78; PULSE 91; RESP 16; O2SAT 96
[2017-07-10] MEDS ORDERED: HEPARIN SODIUM - IV 10,000 UNITS/10 ML VIAL IV ONE (18:30)
[2017-07-10] MEDS ORDERED: HEPARIN-D5W 25,000 U/250 ML 250 ML IV SCH (18:30)
[2017-07-10 18:42] LABS: BANDS 1 % (0-6); METAMYELOCYTES 4 % (0-1); MYELOCYTES 1 % (0-0); NEUTROPHIL # MANUAL DIFF 8.1 TH/MM3 (1.8-7.7); POLYS (SEG NEUTROPHILS) 86 % (16-70); SCAN/DIFF FINAL DIFF MANUAL; WBC DIFF SAMPLE 100
[2017-07-10 18:58] VITALS: RESP 18; O2SAT 95
[2017-07-10] MEDS ORDERED: SODIUM CHLORIDE 0.9% FLUSH 10 ML FLUSH IV FLUSH PRN (19:00)
[2017-07-10] MEDS ORDERED: MAGNESIUM HYDROXIDE SUSP 30 ML CUP PO PRN (19:00)
[2017-07-10] MEDS ORDERED: NALOXONE HCL 0.4 MG/ML AMP IV PRN (19:00)
[2017-07-10] MEDS ORDERED: ONDANSETRON HCL 4 MG/2 ML VIAL IVP PRN (19:00)
[2017-07-10] MEDS ORDERED: TEMAZEPAM 15 MG CAP PO PRN (19:00)
[2017-07-10] MEDS ORDERED: ACETAMINOPHEN 325 MG TAB PO PRN (19:00)
[2017-07-10] MEDS ORDERED: ALPRAZolam 0.25 MG TAB PO PRN (19:15)
--- NOTE | 2017-07-10 19:21 | HHI.HP ---
HPI Service [facility] Hospitalists Primary Care Physician Ping Green MD Admission Diagnosis Pulmonary Embolism Chief Complaint: diagnosed with b/l PE Travel History International Travel<30 Days: No Contact w/Intl Traveler <30 Da: No Traveled to Known Affected Are: No History of Present Illness Patient is a pleasant 71-year-old female with history of metastatic lung cancer to the brain. Patient underwent craniotomy April 2017. Patient has developed worsening shortness of breath over the last week, worse with exertion. Patient underwent CT angiography of the chest(07/10/17) which showed extensive bilateral pulmonary emboli. Procedure was performed outpatient at [facility]. Patient denies chest pain. Patient denies calf pain. Patient denies fever or chills. Review of Systems Constitutional: DENIES: Diaphoretic episodes, Fatigue, Fever, Weight gain, Weight loss, Chills, Dizziness, Change in appetite, Night Sweats Endocrine: COMPLAINS OF: Abnorml menstrual pattern, DENIES: Heat/cold intolerance, Polydipsia, Polyuria, Polyphagia Eyes: DENIES: Blurred vision, Diplopia, Eye inflammation, Eye pain, Vision loss , Photosensitivity, Double Vision Ears, nose, mouth, throat: DENIES: Tinnitus, Hearing loss, Vertigo, Nasal discharge, Oral lesions, Throat pain, Hoarseness, Ear Pain, Running Nose, Epistaxis, Sinus Pain, Toothache, Odynophagia Respiratory: COMPLAINS OF: Shortness of breath, DENIES: Apneas, Cough, Snoring , Wheezing, Hemoptysis, Sputum production Cardiovascular: DENIES: Chest pain, Palpitations, Syncope, Dyspnea on Exertion , PND, Lower Extremity Edema, Orthopnea, Claudication Gastrointestinal: DENIES: Abdominal pain, Black stools, Bloody stools, BRB per rectum, Constipation, Diarrhea, GERD, Nausea, Reflux, Vomiting, Difficulty Swallowing, Anorexia Genitourinary: DENIES: Urinary frequency, Urinary incontinence, Urgency, Hematuria, Dysuria, Nocturia Musculoskeletal: DENIES: Joint pain, Muscle aches, Stiffness, Joint Swelling, Back pain, Neck pain Integumentary: DENIES: Abnormal pigmentation, Pruritus, Rash, Nail changes, Breast masses, Breast skin changes, Nipple discharge Hematologic/lymphatic: DENIES: Bruising, Lymphadenopathy Immunologic/allergic: DENIES: Eczema, Urticaria Neurologic: DENIES: Abnormal gait, Headache, Localized weakness, Paresthesias, Seizures, Speech Problems, Tremor, Poor Balance Psychiatric: DENIES: Anxiety, Confusion, Mood changes, Depression, Hallucinations, Agitation, Suicidal Ideation, Homicidal Ideation, Delusions, History of Bipolar, History of Schizophrenia Past Family Social History Past Medical History 1) non-small cell lung cancer - Status post right lower lobectomy - Chemotherapy per Dr. Britt - s/p radiation therapy - 04/29/17 Resection brain mass = [place] ca C/W previous primary lung ca) 2) left breast cancer, DCIS - Status post lumpectomy - Status post treatment with radiation therapy and by mouth chemotherapy 3) prior pulmonary emboli x b/l , treated with Coumadin for 6 months 4) 10/2013 Hypercoagulable w/u = heterozygous for prothrombin gene mutation) in 2007 5) hypothyroid 6) hyperlipidemia 7) anxiety Past Surgical History [id number] - 10/2012 Thoracoscopic right lower lobe lobectomy - 10/25/2012 Lumpectomy in 2017 - left breast Craniotomy in 2015 Brain biopsy in 2015 Breast biopsy in 2015 RL lobectomy in 2011 Rotator Cuff in 2008 - Right Colonoscopy in 200104/29/17 Resection brain mass = [place] ca C/W previous primary lung ca) Reported Medications Reported Meds & Active Scripts Active Keppra (Levetiracetam) 1,000 Mg Tab 1,000 Mg PO BID Dexamethasone 4 Mg Tab 4 Mg PO Q6HR Reported Zolpidem (Zolpidem Tartrate) 10 Mg Tab 10 Mg PO HS PRN Alprazolam 0.25 Mg Tab 0.25 Mg PO Q8H PRN Levothyroxine (Levothyroxine Sodium) 50 Mcg Tab 50 Mcg PO DAILY Sertraline (Sertraline HCl) 50 Mg Tab 50 Mg PO DAILY Anastrozole 1 Mg Tab 1 Mg PO DAILY Pravastatin 20 Mg Tab 20 Mg PO DAILY Allergies: Coded Allergies: oxycodone (Unverified Adverse Reaction, Severe, Nausea/Vomiting, 07/10/17) Family History Her mother and father both . She has three sisters, 62, 64 and 69 that are alive. She has a brother who is alive 58. She has a brother who is at 74 year's old from an infection. Social History She is retired. She is . She does not have children. She quit smoking in 1974. She drinks two drinks of alcohol per day. Physical Exam Vital Signs Vital Signs Date Time Temp Pulse Resp B/P Pulse Ox O2 Delivery O2 Flow Rate FiO2 07/10/17 18:58 18 95 Room Air 07/10/17 18:58 95 Room Air 07/10/17 18:30 91 16 157/78 96 Room Air 07/10/17 18:20 86 18 96 Room Air 07/10/17 16:13 97.8 98 16 140/73 95 Physical Exam GENERAL: This is a well-nourished, well-developed patient, in no apparent distress. SKIN: No rashes, ecchymoses or lesions. Cool and dry. HEAD: Atraumatic. Normocephalic. No temporal or scalp tenderness. EYES: Pupils equal round and reactive. Extraocular motions intact. No scleral icterus. No injection or drainage. ENT: Nose without bleeding, purulent drainage or septal hematoma. Throat without erythema, tonsillar hypertrophy or exudate. Uvula midline. Airway patent. NECK: Trachea midline. No JVD or lymphadenopathy. Supple, nontender, no meningeal signs. CARDIOVASCULAR: Regular rate and rhythm without murmurs, gallops, or rubs. RESPIRATORY: Clear to auscultation. Breath sounds equal bilaterally. No wheezes , rales, or rhonchi. GASTROINTESTINAL: Abdomen soft, non-tender, nondistended. No hepato-splenomegaly , or palpable masses. No guarding. MUSCULOSKELETAL: Extremities without clubbing, cyanosis, or edema. No joint tenderness, effusion, or edema noted. No calf tenderness. Negative Homans sign bilaterally. NEUROLOGICAL: Awake and alert. Cranial nerves II through XII intact. Motor and sensory grossly within normal limits. Five out of 5 muscle strength in all muscle groups. Normal speech. Laboratory Laboratory Tests Test 07/10/17 17:15 White Blood Count 8.8 Red Blood Count 4.09 Hemoglobin 12.9 Hematocrit 38.1 Mean Corpuscular Volume 93.0 Mean Corpuscular Hemoglobin 31.6 Mean Corpuscular Hemoglobin 33.9 Concent Red Cell Distribution Width 16.7 Platelet Count 164 Mean Platelet Volume 6.9 Neutrophils (%) (Auto) 84.7 Lymphocytes (%) (Auto) 8.3 Monocytes (%) (Auto) 6.6 Eosinophils (%) (Auto) 0.1 Basophils (%) (Auto) 0.3 Neutrophils # (Auto) 7.5 Lymphocytes # (Auto) 0.7 Monocytes # (Auto) 0.6 Eosinophils # (Auto) 0.0 Basophils # (Auto) 0.0 CBC Comment AUTO DIFF Differential Total Cells 100 Counted Neutrophils % (Manual) 86 Band Neutrophils % 1 Lymphocytes % 8 Neutrophils # (Manual) 8.1 Metamyelocytes 4 Myelocytes 1 Differential Comment FINAL DIFF MANUAL Prothrombin Time 10.7 Prothromb Time International 1.0 Ratio Activated Partial 20.9 Thromboplast Time Sodium Level 140 Potassium Level 4.3 Chloride Level 103 Carbon Dioxide Level 27.8 Anion Gap 9 Blood Urea Nitrogen 13 Creatinine 0.61 Estimat Glomerular Filtration 97 Rate Random Glucose 102 Calcium Level 8.7 Magnesium Level 2.3 Total Creatine Kinase 50 Troponin I LESS THAN 0.02 Result Diagram: 07/10/17 1715 07/10/17 1715 Imaging Last Impressions Brain MRI 07/10/17 0000 Signed Impressions: Service Date/Time: Monday, July 10, 2017 17:37 - CONCLUSION: 1. Surgical changes of the left frontal lobe vertex as above with a generally benign appearance. Mildly thick and enhancing wall of the surgical bed but no masslike or nodular enhancement. No bleed or evidence of an acute ischemic event. 2. Mild chronic white matter changes. Reji Quintana MD Septic Shock Reassessment Heart: Regular rate and rhythm Lungs: Clear Skin: Warm Peripheral Pulses: Bounding Right Radial Bounding Left Radial Bounding Right Popliteal Bounding Left Popliteal Bounding Right Dorsalis Pedis Bounding Left Dorsalis Pedis Bounding Right Posterior Tibial Bounding Left Posterior Tibial Capillary Refill: Brisk Assessment and Plan Problem List: (1) Pulmonary embolism Status: Acute Plan: - Pt developed worsening SOB x 2 weeks, worse with exertion - CTA (07/10/17) --> b/l pulmonary emobli - Patient started on heparin and Coumadin - Repeat INR in a.m. - We will discuss with neurosurgery - Patient had resection of brain mass 04/29/17 - If okay with neurosurgery, would prefer to change heparin to Lovenox - Supportive care - Stable on room air at rest - Obtain walk test (2) Non-small cell lung cancer (NSCLC) Status: Chronic Plan: - Status post right lower lobectomy - Chemotherapy per Dr. Britt - s/p radiation therapy - 04/29/17 Resection brain mass = [place] ca C/W previous primary lung ca) - izabela bunn (3) DCIS (ductal carcinoma in situ) of breast Status: Acute Plan: - Lumpectomy in 2017 - left breast - Pt follows with Dr. Britt - Arimidex (4) Hypothyroid Status: Chronic Plan: - Synthroid (5) Hyperlipidemia Status: Chronic Plan: - pravachol Physician Certification 2 Midnight Certification Type: Admission for Inpatient Services Order for Inpatient Services The services are ordered in accordance with Medicare regulations or non- Medicare payer requirements, as applicable. In the case of services not specified as inpatient-only, they are appropriately provided as inpatient services in accordance with the 2-midnight benchmark. Estimated LOS (days): 3 3 days is the estimated time the patient will need to remain in the hospital, assuming treatment plan goals are met and no additional complications. Post-Hospital Plan: Not yet determined Problem Qualifiers (1) Pulmonary embolism: (2) Non-small cell lung cancer (NSCLC): (3) DCIS (ductal carcinoma in situ) of breast: Ayan Peralta DO Jul 10, 2017 19:21
[2017-07-10] MEDS: SODIUM CHLORIDE 0.9% FLUSH 10 ML FLUSH IV FLUSH SCH (20:31)
[2017-07-10] MEDS: WARFARIN SOD 5 MG TAB PO SCH (20:42)
[2017-07-10] MEDS: levETIRAcetam 500 MG TAB PO SCH (20:42)
[2017-07-10 21:10] VITALS: BP 136/76; PULSE 94; RESP 18; O2SAT 96
[2017-07-10 21:48] VITALS: BP 141/65; PULSE 90; RESP 18; TEMP 96.5; O2SAT 94
[2017-07-11] VITALS (7 sets, daily range): BP systolic 103–134; BP diastolic 55–74; PULSE 88–115; RESP 14–18; TEMP 96–97.7; O2SAT 93–96
[2017-07-11] MEDS ORDERED: HEPARIN SODIUM - IV 10,000 UNITS/10 ML VIAL IV PRN ×2 (00:30)
[2017-07-11] MEDS: LEVOTHYROXINE SODIUM 50 MCG TAB PO SCH (05:54)
[2017-07-11] MEDS: DEXAMETHASONE 4 MG TAB PO SCH ×3 (05:54→12:07)
[2017-07-11 06:18] LABS: AUTOMATED NEUTROPHIL # 4.7 TH/MM3 (1.8-7.7); BASOPHIL % 0.3 % (0.0-2.0); EOSINOPHIL # 0.1 TH/MM3 (0-0.4); EOSINOPHIL % 1.8 % (0.0-4.0); HEMATOCRIT 36.3 % (35.0-46.0); LYMPH % 21.4 % (9.0-44.0); LYMPHOCYTE # 1.4 TH/MM3 (1.0-4.8); MEAN CORPUSCULAR HEMOGLOBIN 32.2 PG (27.0-34.0); MEAN CORPUSCULAR HGB CONC 34.6 % (32.0-36.0); MONO % 7.6 % (0.0-8.0); NEUT % 68.9 % (16.0-70.0); PLATELET COUNT 159 TH/MM3 (150-450); WHITE BLOOD COUNT 6.8 TH/MM3 (4.0-11.0)
[2017-07-11 06:36] LABS: HEMO FLAGS AUTO DIFF; PROTHROMBIN TIME - PATIENT 10.9 SEC (9.8-11.6)
[2017-07-11 06:51] LABS: APTT (PATIENT) 48.6 SEC (24.3-30.1)
[2017-07-11 06:55] LABS: BICARBONATE 28.7 MEQ/L (21.0-32.0)
[2017-07-11 07:29] LABS: BANDS 1 % (0-6); EOSINOPHILS 1 % (0-4); MYELOCYTES 1 % (0-0); NEUTROPHIL # MANUAL DIFF 5.2 TH/MM3 (1.8-7.7); PLATELET ESTIMATE SMEAR NORMAL (NORMAL); PLATELET MORPHOLOGY NORMAL (NORMAL); POLYS (SEG NEUTROPHILS) 74 % (16-70); SCAN/DIFF FINAL DIFF MANUAL; WBC DIFF SAMPLE 100
[2017-07-11] MEDS: levETIRAcetam 500 MG TAB PO SCH ×2 (09:04→20:57)
[2017-07-11] MEDS: ANASTROZOLE 1 MG TAB PO SCH (09:04)
[2017-07-11] MEDS: SERTRALINE HCL 50 MG TAB PO SCH (09:04)
[2017-07-11] MEDS: PRAVASTATIN SOD 20 MG TAB PO SCH (09:04)
[2017-07-11] MEDS: SODIUM CHLORIDE 0.9% FLUSH 10 ML FLUSH IV FLUSH SCH ×2 (09:06→20:57)
--- NOTE | 2017-07-11 12:31 | HHI.PR ---
Subjective Remarks No new complaints. Objective Vitals Vital Signs Date Time Temp Pulse Resp B/P Pulse Ox O2 Delivery O2 Flow Rate FiO2 07/11/17 08:00 97.4 89 14 134/74 95 07/11/17 04:00 97.0 88 17 108/56 94 07/11/17 00:00 96.2 95 17 106/55 96 07/10/17 21:48 96.5 90 18 141/65 94 07/10/17 21:10 94 18 136/76 96 Room Air 07/10/17 18:58 18 95 Room Air 07/10/17 18:58 95 Room Air 07/10/17 18:30 91 16 157/78 96 Room Air 07/10/17 18:20 86 18 96 Room Air 07/10/17 16:13 97.8 98 16 140/73 95 Result Diagram: 07/11/17 0557 07/11/17 0557 Imaging Last Impressions Brain MRI 07/10/17 0000 Signed Impressions: Service Date/Time: Monday, July 10, 2017 17:37 - CONCLUSION: 1. Surgical changes of the left frontal lobe vertex as above with a generally benign appearance. Mildly thick and enhancing wall of the surgical bed but no masslike or nodular enhancement. No bleed or evidence of an acute ischemic event. 2. Mild chronic white matter changes. Reji Quintana MD Objective Remarks GENERAL: This is a well-nourished, well-developed patient, in no apparent distress. CARDIOVASCULAR: Regular rate and rhythm without murmurs, gallops, or rubs. RESPIRATORY: Clear to auscultation. Breath sounds equal bilaterally. No wheezes , rales, or rhonchi. GASTROINTESTINAL: Abdomen soft, non-tender, nondistended. Normal active bowel sounds MUSCULOSKELETAL: Extremities without clubbing, cyanosis, or edema. NEURO: Alert & Oriented x4 to person, place, time, situation. Moves all ext x4 A/P Problem List: (1) Pulmonary embolism Status: Acute Plan: - Pt developed worsening SOB x 2 weeks, worse with exertion - CTA (07/10/17) --> b/l pulmonary emobli - Patient started on heparin and Coumadin - Repeat INR in a.m. - We will discuss with neurosurgery - Patient had resection of brain mass 04/29/17 - If okay with neurosurgery, would prefer to change heparin to Lovenox - Supportive care - Stable on room air at rest - Obtain walk test - repeat INR in AM (2) Non-small cell lung cancer (NSCLC) Status: Chronic Plan: - Status post right lower lobectomy - Chemotherapy per Dr. Britt - s/p radiation therapy - 04/29/17 Resection brain mass = [place] C/W previous primary lung ca) - izabela bunn (3) DCIS (ductal carcinoma in situ) of breast Status: Acute Plan: - Lumpectomy in 2017 - left breast - Pt follows with Dr. Britt - Arimidex (4) Hypothyroid Status: Chronic Plan: - Synthroid (5) Hyperlipidemia Status: Chronic Plan: - pravachol Problem Qualifiers (1) Pulmonary embolism: (2) Non-small cell lung cancer (NSCLC): (3) DCIS (ductal carcinoma in situ) of breast: Ayan Peralta DO Jul 11, 2017 12:31
[2017-07-11 13:08] LABS: APTT (PATIENT) 64.3 SEC (24.3-30.1)
--- NOTE | 2017-07-11 15:29 | EKG ---
Date Performed: 07/10/2017 Time Performed: 18:09:40 PTAGE: 71 years EKG: Sinus rhythm NORMAL ECG PREVIOUS TRACING : 04/27/2017 12.02 Since previous tracing, no significant change noted DOCTOR: Crow Aparicio Interpretating Date/Time 07/11/2017 15:27:14
[2017-07-11] MEDS: WARFARIN SOD 5 MG TAB PO SCH (16:11)
--- NOTE | 2017-07-11 16:55 | MB ---
cc: JOHN ASENCIO DATE OF CONSULTATION 07/11/17 DATE OF 47 REASON FOR CONSULTATION Patient with a past medical history of metastatic lung cancer with mets to the brain who was brought to the emergency room after she was found to have bilateral pulmonary emboli. HISTORY OF PRESENT ILLNESS This is a 71-year-old female who has a past medical history of metastatic lung cancer. She developed brain mets. She has undergone stereotactic radiosurgery. She also has a past medical history of breast cancer and is currently on hormone blockade therapy with anastrozole. The patient has previously undergone left-sided craniotomy for recurrent cerebral neoplasm and underwent resection and intraoperative motor cortex electrocorticography. She was now sent to the emergency department after she was found to have extensive bilateral pulmonary emboli. The patient was progressively becoming short of breath over the past 1 week. She was sent to the emergency department. An MRI of the brain was obtained which showed surgical changes to the left frontal lobe. There is mild thick and enhancing wall of the surgical bed but no mass-like or nodular enhancement. There was no evidence of any bleeding or acute ischemic event. The patient was started on heparin GTT. The patient currently is resting comfortably. Her oxygen saturations are in the mid to high 90s. She denies any cough, congestion. No fevers or chills. No chest pain. She denies any abdominal pain. No lower extremity edema or pain. REVIEW OF SYSTEMS A comprehensive 14-point review of systems was completed which is negative except as described in the HPI. PAST MEDICAL HISTORY Metastatic [id number] lung cancer status post right lower lobe lobectomy. She has received chemotherapy and also underwent radiation treatment. She also had resection of the brain mass which was consistent with adenocarcinoma of lung primary. History of left breast cancer. She is status post lumpectomy and has had radiation therapy and is currently on anastrozole. She has a history of prothrombin mutation and she was actually found to be heterozygous for this mutation in 2007. She has had prior pulmonary emboli which was treated with 6 months of Coumadin. Hypothyroidism, hyperlipidemia, anxiety. PAST SURGICAL HISTORY [id number]-[id number], fluoroscopic right lobe lobectomy, lumpectomy in 2016, craniotomy in 2015. Brain biopsy in 2015, breast biopsy in 2015, right lower lobectomy 2011. Rotator cuff in 2008. Colonoscopy in 2001. MEDICATIONS 1. Keppra 1000 milligrams p.o. b.i.d. 2. Dexamethasone 4 milligrams p.o. q. 6 hours p.r.n. 3. Zolpidem 10 milligrams p.o. q.h.s. 4. Alprazolam 0.25 milligrams p.o. q.8 hours p.r.n. 5. Levothyroxine 50 micrograms 1 tablet p.o. daily. 6. Sertraline 50 milligram tablet p.o. daily. 7. Anastrozole 1 milligram p.o. daily. 8. Pravastatin 20 milligram tab p.o. daily. ALLERGIES SHE IS ALLERGIC TO ROXICODONE FAMILY HISTORY Reviewed and is noncontributory to this admission. SOCIAL HISTORY She is retired. She is . Does not have any children. She quit smoking in 1974. She drinks two alcoholic beverages per day. PHYSICAL EXAMINATION VITAL SIGNS: Blood pressure is 134/74, pulse is in the 80s, temperature is 97.4, O2 sats are 95% on room air. GENERAL: Well-developed, well-nourished female in no apparent distress. HEENT: Pupils are equal, round, reactive to light. EOMI. No oral thrush. No oral lesions. NECK: Supple. No JVD, no bruits. No lymphadenopathy. CHEST: Clear to auscultation bilaterally. CARDIAC: S1-S2, regular rate and rhythm. ABDOMEN: Soft, nontender, nondistended. Bowel sounds are present. EXTREMITIES: Without any edema, erythema or cyanosis. SKIN: Without any petechiae, lesion or bruises. NEURO: No focal deficits. PSYCHIATRIC: Mood and affect is appropriate. LABORATORY DATA WBC 6.8, hemoglobin 12.5, platelet count 159. Serum chemistries show sodium of 138, potassium 4, chloride 101, CO2 28.7, anion gap 8, BUN 14, creatinine 0.59, GFR is 101, calcium is 8.1. IMAGING STUDIES Brain MRI was reviewed in the EMR. ASSESSMENT/PLAN This is a 71-year-old female with a past medical history of metastatic lung cancer with mets to the brain status post craniotomy. She also has a history of breast cancer and currently on adjuvant hormone blockade therapy. She presents with dyspnea and was found to have bilateral pulmonary emboli. 1. Bilateral pulmonary emboli in the setting of underlying malignancy as well as history of underlying heterozygous gene for prothrombin mutation. This patient will require lifelong anticoagulation. She is currently on heparin and has been doing well without any complications overnight. I would recommend discharging this patient on Lovenox 1 milligram/kg b.i.d. or equivalent to that once a day. We should also obtain Doppler ultrasounds of the lower extremities to rule out any DVT that may have precipitated this pulmonary emboli. 2. History of stage IV lung cancer. 3. History of breast cancer currently on adjuvant therapy with anastrozole. Thank you for allowing me to participate in the care of this patient. The patient can be discharged home from hematology perspective, she will follow up with Dr. Britt outpatient. MD LUZ Cohen/HOPE /4:01 PM /4:26 PM
[2017-07-11] MEDS: ENOXAPARIN SODIUM 100 MG/ML SYRINGE SQ SCH (18:27)
--- NOTE | 2017-07-11 18:58 | RADRPT ---
EXAM DATE/TIME: 07/11/2017 18:13 [facility] COMPARISON: No previous studies available for comparison. INDICATIONS : Pulmonary embolism. MEDICAL HISTORY : Chronic obstructive pulmonary disease. Carcinoma, lung. SURGICAL HISTORY : Rotator cuff, right. Craniotomy. Right lung lobectomy. ENCOUNTER: Initial ACUITY: 2 day PAIN SCORE: 0/10 LOCATION: Bilateral leg. TECHNIQUE: Venous ultrasound of the left and right leg was performed from the inguinal ligament to the proximal calf. Real-time, color Doppler and spectral tracing, compression and augmentation techniques were us ed. FINDINGS: RIGHT LEG: There is thrombus within the popliteal vein, peroneal and posterior tibial veins. The common femoral vein and superficial femoral veins are patent. LEFT LEG: There is thrombus within common femoral vein and posterior tibial vein. The other vessels are patent. CONCLUSION: Bilateral DVT. Chet Barakat MD on July 11, 2017 at 18:55 Board Certified Radiologist. This report was verified electronically.
[2017-07-12] VITALS: BP 118/75; PULSE 86; PULSE 88; RESP 18; TEMP 96.9; O2SAT 95
[2017-07-12 04:00] VITALS: BP 113/72; PULSE 86; PULSE 87; RESP 17; TEMP 97.2; O2SAT 99
[2017-07-12] MEDS: LEVOTHYROXINE SODIUM 50 MCG TAB PO SCH (04:06)
[2017-07-12 05:39] LABS: APTT (PATIENT) 22.2 SEC (24.3-30.1); INTERNATIONAL NORMALIZED RATIO 1.2 RATIO; PROTHROMBIN TIME - PATIENT 13.9 SEC (9.8-11.6)
[2017-07-12] MEDS: SERTRALINE HCL 50 MG TAB PO SCH (07:46)
[2017-07-12] MEDS: PRAVASTATIN SOD 20 MG TAB PO SCH (07:46)
[2017-07-12] MEDS: ANASTROZOLE 1 MG TAB PO SCH (07:46)
[2017-07-12] MEDS: levETIRAcetam 500 MG TAB PO SCH (07:47)
[2017-07-12] MEDS: SODIUM CHLORIDE 0.9% FLUSH 10 ML FLUSH IV FLUSH SCH (07:50)
[2017-07-12 08:00] VITALS: BP 122/76; PULSE 96; RESP 20; TEMP 98.2; O2SAT 95
[2017-07-12 08:40] VITALS: PULSE 93
[2017-07-12] MEDS ORDERED: DEXAMETHASONE 0.5 MG TAB PO SCH (09:00)
[2017-07-12] MEDS ORDERED: PNEUMOCOCCAL POLYVALENT INJ 25 MCG/0.5 ML SYR IM ONE (10:00)
[2017-07-12] MEDS ORDERED: INFLUENZA VIRUS VACCINE (QUADRIVALENT) 0.5 ML SYR IM ONE (10:00)
[2017-07-12 12:00] VITALS: BP 122/66; PULSE 97; RESP 20; TEMP 97.4; O2SAT 95
[2017-07-12] MEDS ORDERED: ENOX100P SQ (15:55)
[2017-07-12] MEDS: WARFARIN SOD 5 MG TAB PO SCH (15:55)
[2017-07-12] MEDS: ENOXAPARIN SODIUM 100 MG/ML SYRINGE SQ SCH (15:56)
[2017-07-12] MEDS ORDERED: COUM5TAB PO (16:09)
--- NOTE | 2017-07-12 16:15 | HHI.DCPOC ---
Discharge Care Plan Diagnosis: (1) DVT, bilateral lower limbs (2) Pulmonary embolism (3) Non-small cell lung cancer (NSCLC) (4) Hypothyroid (5) Hyperlipidemia (6) DCIS (ductal carcinoma in situ) of breast Goals to Promote Your Health * To prevent worsening of your condition and complications * To maintain your health at the optimal level Directions to Meet Your Goals Take your medications as prescribed Follow your dietary instruction Follow activity as directed Keep your appointments as scheduled Take your immunizations and boosters as scheduled If your symptoms worsen call your PCP, if no PCP go to Urgent Care Center or Emergency Room Smoking is Dangerous to Your Health. Avoid second hand smoke Call the 24-hour hour crisis hotline for domestic abuse at Ayan Peralta DO Jul 12, 2017 16:15
--- NOTE | 2017-07-12 16:20 | HHI.PR ---
Subjective Remarks No new complaints. Eager for discharge to home. Objective Vitals Vital Signs Date Time Temp Pulse Resp B/P (MAP) Pulse Ox O2 Delivery O2 Flow Rate FiO2 07/12/17 12:00 97.4 97 20 122/66 (84) 95 07/12/17 08:40 93 07/12/17 08:00 98.2 96 20 122/76 (91) 95 07/12/17 04:00 87 07/12/17 04:00 97.2 86 17 113/72 (86) 99 07/12/17 00:00 88 07/12/17 00:00 96.9 86 18 118/75 (89) 95 07/11/17 20:00 97.7 103 18 103/65 (78) 96 07/11/17 20:00 100 07/11/17 20:00 97.7 103 18 103/65 (78) 96 07/11/17 16:24 109 Result Diagram: 07/11/17 0557 07/11/17 0557 Imaging Last Impressions Lower Extremity Ultrasound 07/11/17 0000 Signed Impressions: Service Date/Time: Tuesday, July 11, 2017 18:13 - CONCLUSION: Bilateral DVT. K. Justin Barakat MD Brain MRI 07/10/17 0000 Signed Impressions: Service Date/Time: Monday, July 10, 2017 17:37 - CONCLUSION: 1. Surgical changes of the left frontal lobe vertex as above with a generally benign appearance. Mildly thick and enhancing wall of the surgical bed but no masslike or nodular enhancement. No bleed or evidence of an acute ischemic event. 2. Mild chronic white matter changes. Reji Quintana MD Objective Remarks GENERAL: This is a well-nourished, well-developed patient, in no apparent distress. CARDIOVASCULAR: Regular rate and rhythm without murmurs, gallops, or rubs. RESPIRATORY: Clear to auscultation. Breath sounds equal bilaterally. No wheezes , rales, or rhonchi. GASTROINTESTINAL: Abdomen soft, non-tender, nondistended. Normal active bowel sounds MUSCULOSKELETAL: Extremities without clubbing, cyanosis, or edema. NEURO: Alert & Oriented x4 to person, place, time, situation. Moves all ext x4 A/P Problem List: (1) Pulmonary embolism ICD Codes: I26.99 - Other pulmonary embolism without acute cor pulmonale Status: Acute Plan: - Pt developed worsening SOB x 2 weeks, worse with exertion - CTA (07/10/17) --> b/l pulmonary emobli - B/L LE US (07/11/17) --> b/l DVT - Patient started on heparin and Coumadin - discharge on lovenox and coumadin - INR (07/12/17) 1.2 - discussed with neurosurgery - Patient had resection of brain mass 04/29/17 - okay with neurosurgery to prescribe coumadin with lovenox bridge - daily INR at outpt lab, once INR above 2, then stop lovenox and daily INR. Change INR to and - results of INR to be sent to Oncology, Dr. Britt. - Pt to f/u with Dr. Britt in 3-5 days - discharge to home - see discharge orders (2) Non-small cell lung cancer (NSCLC) ICD Codes: C34.90 - Malignant neoplasm of unspecified part of unspecified bronchus or lung Status: Chronic Plan: - Status post right lower lobectomy - Chemotherapy per Dr. Britt - s/p radiation therapy - 04/29/17 Resection brain mass = [place] ca C/W previous primary lung ca) - izabela bunn (3) DCIS (ductal carcinoma in situ) of breast ICD Codes: D05.10 - Intraductal carcinoma in situ of unspecified breast Status: Acute Plan: - Lumpectomy in 2017 - left breast - Pt follows with Dr. Britt - Arimidex (4) Hypothyroid ICD Codes: E03.9 - Hypothyroidism, unspecified Status: Chronic Plan: - Synthroid (5) Hyperlipidemia ICD Codes: E78.5 - Hyperlipidemia, unspecified Status: Chronic Plan: - pravachol Problem Qualifiers (1) Pulmonary embolism: (2) Non-small cell lung cancer (NSCLC): (3) DCIS (ductal carcinoma in situ) of breast: Ayan Peralta DO Jul 12, 2017 16:20
[2017-07-12 16:51] VITALS: BP 133/66; PULSE 91; RESP 20; TEMP 97.1; O2SAT 95
--- NOTE | 2017-07-12 17:25 | PD.ONC.PN ---
Subjective Subjective Remarks see earlier in the day doing well breathing better no complaints wants to go home US LE shows b/l DVT Objective Data Date Time Temp Pulse Resp B/P (MAP) Pulse Ox O2 Delivery O2 Flow Rate FiO2 07/12/17 16:51 97.1 91 20 133/66 (88) 95 07/12/17 12:00 97.4 97 20 122/66 (84) 95 07/12/17 08:40 93 07/12/17 08:00 98.2 96 20 122/76 (91) 95 07/12/17 04:00 87 07/12/17 04:00 97.2 86 17 113/72 (86) 99 07/12/17 00:00 88 07/12/17 00:00 96.9 86 18 118/75 (89) 95 07/11/17 20:00 97.7 103 18 103/65 (78) 96 07/11/17 20:00 100 07/11/17 20:00 97.7 103 18 103/65 (78) 96 07/12/17 07/12/17 07/12/17 07:00 15:00 23:00 Intake Total 480 ml Balance 480 ml Result Diagram: 07/11/17 0557 07/11/17 0557 Laboratory Results Laboratory Tests Test 07/12/17 04:33 Prothrombin Time 13.9 SEC Prothromb Time International Ratio 1.2 RATIO Activated Partial Thromboplast Time 22.2 SEC Objective Remarks GENERAL: nad SKIN: Warm and dry. LYMPHATIC: No adenopathy. CARDIOVASCULAR: Regular rate and rhythm without murmurs. RESPIRATORY: Breath sounds equal bilaterally. No accessory muscle use. GASTROINTESTINAL: Abdomen soft, non-tender, nondistended. EXTREMITIES: No cyanosis, 1plus edema. Assessment/Plan Problem List: (1) Breast cancer ICD Codes: C50.919 - Malignant neoplasm of unspecified site of unspecified female breast (2) Lung cancer ICD Codes: C34.90 - Malignant neoplasm of unspecified part of unspecified bronchus or lung Status: Acute (3) Neoplasm of brain causing mass effect on adjacent structures ICD Codes: D49.6 - Neoplasm of unspecified behavior of brain Status: Acute (4) Non-small cell lung cancer (NSCLC) ICD Codes: C34.90 - Malignant neoplasm of unspecified part of unspecified bronchus or lung Status: Chronic (5) DVT, bilateral lower limbs ICD Codes: I82.403 - Acute embolism and thrombosis of unspecified deep veins of lower extremity, bilateral (6) Pulmonary embolism ICD Codes: I26.99 - Other pulmonary embolism without acute cor pulmonale Status: Acute Assessment 71-year-old female with a past medical history of metastatic lung cancer with mets to the brain status post craniotomy. She also has a history of breast cancer and currently on adjuvant hormone blockade therapy. She presents with dyspnea and was found to have bilateral pulmonary emboli. 1. Bilateral pulmonary emboli in the setting of underlying malignancy as well as history of underlying heterozygous gene for prothrombin mutation. - U/S LE shows b/l DVT - Continue Lovenox - ok to d/c home with lovenox 2. History of stage IV lung cancer. 3. History of breast cancer currently on adjuvant therapy with anastrozole. F/U in oncology clinic in [address] Britt Problem Qualifiers (1) Non-small cell lung cancer (NSCLC): (2) Pulmonary embolism: Lizandro Gillespie MD Jul 12, 2017 17:25
== END 2017-07-12 17:10 | disposition home or self-care (01) | DRG 176 ==
LOC: NEPC 16:09 → NEDA 19:15 → HOCB 21:36
PROVIDERS: ADMIT Hospitalist; ATTEND Hospitalist
DX: I26.99 Other pulmonary embolism without acute cor pulmonale (principal); C79.31 Secondary malignant neoplasm of brain; D68.52 Prothrombin gene mutation; I82.403 Acute embolism and thrombosis of unspecified deep veins of lower extremity, bilateral; Z85.118 Personal history of other malignant neoplasm of bronchus and lung; E03.9 Hypothyroidism, unspecified; E78.5 Hyperlipidemia, unspecified; Z85.3 Personal history of malignant neoplasm of breast; Z92.3 Personal history of irradiation; Z92.21 Personal history of antineoplastic chemotherapy; J44.9 Chronic obstructive pulmonary disease, unspecified; Z87.891 Personal history of nicotine dependence; Z90.2 Acquired absence of lung [part of]
CPT/HCPCS: 70553; 80048; 82550; 83735; 84484; 85007; 85027; 85610; 85730; 93005; 93970; 94620; A9579; J1644; J1650; J8540